=== PATIENT | male | born 1970 | race African-American/Black ===

== ENCOUNTER 2017-10-11 04:52 | Emergency (ER) | payer OTHER ==
[~2017-10-11] VITALS: Ht 188 cm; Wt 97.5 kg
[~2017-10-11 04:52] MED LIST: CEFDINIR300 MG PO; INDOCIN SR75 MG PO; INDOCIN25 MG PO; NOHOMEMEDS; NORCO 7.5/321 TABLET PO; PERCOCET 5/31 TABLET PO
[2017-10-11 05:46] VITALS: BP 171/106
== END 2017-10-11 05:37 | disposition left against medical advice (07) ==
LOC: EME 04:52
DX: S01.01XA Laceration without foreign body of scalp, initial encounter (principal); S00.511A Abrasion of lip, initial encounter; Y04.2XXA Assault by strike against or bumped into by another person, initial encounter; F07.81 Postconcussional syndrome; I10 Essential (primary) hypertension; F17.200 Nicotine dependence, unspecified, uncomplicated; Z53.29 Procedure and treatment not carried out because of patient's decision for other reasons
CPT/HCPCS: 99281; 99283